=== PATIENT | female | born 2000 | race Caucasian/White ===

== ENCOUNTER 2023-04-21 09:34 | Emergency (ER) | payer MEDICAID, SELFPAY ==
[2023-04-21 09:35] VITALS: BP 135/73; PULSE 104; RESP 14; TEMP 36.6; O2SAT 99; BMI 28.3
--- NOTE | 2023-04-21 09:51 | EX.ED.VIS.UR ---
HPI HPI - URI History of Present Illness Chief Complaint: Sore Throat Informant: patient Onset/Context/Timing Onset: Days (3) Context: Gradual Onset Timing: Continuous Quality: Stabbing, aching Location: Throat Worsened by: Swallowing and Eating Solids Relieved by: - (Nothing) Associated Symptoms Associated Symptoms: Positive for Chest Pain; Negative for Nasal Congestion, Headache, Sinus Pressure, Myalgias, Nausea, Vomiting, Diarrhea, Shortness of Breath, Nonproductive cough, Hemoptysis or Productive Cough Narrative Narrative: Patient presents with a sore throat that has been getting worse over the past 3 days. Patient states it is gradually getting worse. Patient states it is a constant ache but stabbing when she swallows. Patient states it is worse whenever she swallows or eats anything. Patient is able to swallow water. Patient denies any fevers or chills. Patient also admits to some pain in her chest. Patient states it is worse when she raises her arms. Patient denies any cough or shortness of breath. Patient denies any nausea or vomiting. ROS ROS ED Constitutional Constitutional ED: Denies chills or fever(s) Eyes Eyes: Denies blurry vision or change in vision ENT ENT ED: Reports sore throat; Denies rhinorrhea Cardiovascular Cardiovascular: Reports chest pain; Denies palpitations Respiratory/Chest Respiratory/Chest: Denies cough or dyspnea Gastrointestinal Gastrointestinal: Denies nausea or vomiting Genitourinary Genitourinary ED: Denies dysuria or hematuria Musculoskeletal Musculoskeletal: Denies back pain or neck pain Integumentary Denies abscess or rash Neurologic Neurologic: Denies headache(s) or weakness Allergic/Immunologic Allergic/Immunologic ED: Denies mouth swelling or urticaria PFSH PFSH Medical History no medical history no medical history Allergy/AdvReac Type Severity Reaction Status Date / Time No Known Allergies Allergy Verified 04/21/23 09:35 Surgical History Hx of tonsillectomy Social History Smoking Status: Current every day smoker tobacco type: cigarettes EXAM Physical Exam Const Vital Signs: 04/21/23 09:35 04/21/23 12:00 Temperature 98 F Temperature Source Temporal Pulse Rate 104 H Respiratory Rate 14 16 Blood Pressure 135/73 H Blood Pressure Mean 93 Pulse Ox 99 Oxygen Delivery Method Room Air Positive well nourished and well developed General Appearance ED: well developed and NAD HEENT Reports moist mucous membranes normocephalic and atraumatic Face and Sinus: Negative for sinus tenderness Throat: posterior oropharynx abnormal Positive for erythema; Negative for exudates Neck no lymphadenopathy, supple, no meningeal signs and no JVD General: Negative for anterior neck swelling Resp normal respiratory effort and clear to auscultation bilaterally Cardio Rate: regular rate Rhythm: regular rhythm GI non-tender Palpation: soft Extremity normal to inspection and full ROM Neuro oriented x3, CN's II-XII intact bilaterally and no sensory deficits noted Sensorium / Orientation: alert Motor Exam: strength 5/5 throughout Psych mental status grossly normal MDM MDM MDM Narrative Medical decision making narrative: Differential diagnosis includes strep pharyngitis, viral pharyngitis, parapharyngeal abscess, pneumonia, viral upper respiratory infection, and COVID-19 infection. Chest x-ray will be obtained to assess for pneumonia. Rapid strep will be obtained to assess for strep pharyngitis. COVID-19 rapid antigen will be obtained to assess for COVID-19 infection. Influenza A and influenza B antigens will be obtained to assess for influenza infection. CBC will be obtained to assess for leukocytosis or anemia. Basic metabolic profile will be obtained to assess for electrolyte abnormality and renal function. CT scan of the soft tissue neck will be obtained to assess for parapharyngeal abscess. Lab Data Attestation: I reviewed the patient's lab results. Lab results narrative: CBC was reviewed. There is a mild leukocytosis of 11.8. Basic metabolic profile was reviewed and was essentially within normal limits. Labs: Laboratory Results - last 24 hr 04/21/23 10:08 WBC 11.8 H RBC 4.80 Hgb 13.9 Hct 44.7 MCV 93.1 MCH 29.0 MCHC 31.1 L RDW Std Deviation 44.6 H RDW Coeff of Cindy 13.0 Plt Count TNP MPV 11.5 Immature Gran % (Auto) 0.400 Neut % (Auto) 76.3 H Lymph % (Auto) 11.6 L Glascock % (Auto) 10.3 H Eos % (Auto) 0.8 Baso % (Auto) 0.6 Absolute Neuts (auto) 9.0 H Absolute Lymphs (auto) 1.37 Nucleated RBC % 0 Platelet Estimate ADEQUATE Sodium 136 Potassium 4.5 Chloride 108 H Carbon Dioxide 23.0 Anion Gap 5 BUN 7 Creatinine 0.86 Estim Creat Clear Calc 84.88 Est GFR (MDRD) Af Amer 105 Est GFR (MDRD) Non-Af 87 BUN/Creatinine Ratio 8.1 L Glucose 119 H Calcium 8.8 Radiography Chest X-Ray - ED: 2 View, Read by ED Physician, Read by Radiologist and No Acute Disease Diagnostic Testing: Clinical Impression(s) from Imaging Studies Soft Tissue Neck CT 04/21/23 09:56 IMPRESSION: Normal enhanced CT examination of the soft tissues of the neck. Electronically Signed: Carlos Hurtado MD at 11:15 EDT , Chest X-Ray 04/21/23 09:57 IMPRESSION: Normal x-ray examination of the chest. Electronically Signed: Eddie Walker MD at 10:53 EDT , PA and lateral chest x-ray was obtained. There are 2 views. On my independent interpretation, lung lopez are clear. There is normal cardiac silhouette. Bony thorax is normal. There is no acute process noted. Radiologist also interpreted the x-ray and agrees. CT scan of the soft tissue neck was obtained. There is no evidence of any abscess or fluid collection. This was interpreted by the radiologist and was also independently reviewed by myself. Treatment and Re-Evaluation Narrative: Was given IV fluids and morphine. Patient was feeling better on reevaluation. Patient was advised of her findings. Patient was advised that this is most likely a viral pharyngitis. Patient was instructed to drink plenty of fluids. Patient was instructed to follow-up with her primary care physician in 5 to 7 days. Patient understood and was agreeable with the plan. All questions were answered. Discharge Plan Triage Chief Complaint: Sore Throat ED Provider: Solitario Lennon Dx/Rx/DC Orders Clinical Impression: Viral pharyngitis Instructions: ED Pharyngitis, Viral Primary Care Provider: Care Physician,No Primary Referrals: Hernesto Ohara MD [Non-Staff] - 5-7 Days Disposition Disposition: Home, Self Care
--- NOTE | 2023-04-21 09:56 | CT_ITS ---
STUDY: CT SOFT TISSUE NECK WITH CONTRAST REASON FOR EXAM: Female, 22 years old. Sore throat. Patient feels a lump in the throat. RADIATION DOSAGE (If Supplied By Facility): CTDIvol = ( 17.00 ) mGy, DLP = ( 518.17 ) mGycm TECHNIQUE: The patient was scanned in a multi-detector CT scanner. High resolution transaxial imaging was performed following intravenous administration of IV 100mL [id number]-[id number]. Sagittal and coronal images were reconstructed. Individualized dose optimization techniques were used for this CT. COMPARISON: None. FINDINGS: Normal bilateral parotid glands. Normal bilateral seam rubber spaces. Normal bilateral parapharyngeal spaces. Normal bilateral carotid spaces. Normal bilateral sublingual and submandibular glands and spaces. Normal visualized nasopharynx. Normal retropharyngeal space. Normal perivertebral space. Normal visualized bilateral faucial tonsils. The visualized tongue, tongue base and oropharynx are normal. The visualized cervical lymph nodes (levels I-) are within normal size limits, and maintain normal morphology. There is no demonstrated solid or cystic mass lesion. There is no abnormal contrast enhancement. Normal epiglottis, bilateral vallecula and hypopharynx. The pre-epiglottic and paraglottic adipose spaces are normal. Normal visualized bilateral piriform sinuses, aryepiglottic folds, vocal cords, and arytenoid-cricoid articulations. Normal subglottic trachea. Normal bilateral lobes of the thyroid gland. Normal visualized pulmonary apices. Minimal mucosal thickening in the left maxillary sinus. Normal visualized cervical spine. CT/Soft Tissue Neck WITH Contrast IMPRESSION: Normal enhanced CT examination of the soft tissues of the neck. Electronically Signed: Carlos Hurtado MD at 11:15 EDT ,
--- NOTE | 2023-04-21 09:57 | RAD_ITS ---
STUDY: X-RAY CHEST REASON FOR EXAM: Female, 22 years old. Throat pain radiating into chest. TECHNIQUE: Frontal and lateral views of the chest. COMPARISON: None. FINDINGS: The lungs are clear and expanded. There is no demonstrated pleural abnormality. Normal size heart. Normal mediastinum and nataly. Normal visualized pulmonary arteries. Normal visualized aortic arch and descending thoracic aorta. Normal visualized thoracic spine. Normal visualized ribs, clavicles, and shoulders. No abnormality of the visualized soft tissue structures of the upper abdomen. RAD/Chest PA and Lateral IMPRESSION: Normal x-ray examination of the chest. Electronically Signed: Eddie Walker MD at 10:53 EDT ,
[2023-04-21] MEDS: Morphine 2 MG/ML Syringe IV (10:14)
[2023-04-21] MEDS: 0.9% Normal Saline (1000mL) 1,000 ML 1000 ML IV (10:16)
[2023-04-21 10:18] LABS: Absolute Lymphocyte Count 1.37 X10^3/uL (0.83-4.51); Basophil# 0.07 X10^3/uL; Basophil% 0.6 % (0-1); Eosinophil# 0.09 X10^3/uL; Eosinophils% 0.8 % (0-5); Hematocrit 44.7 % (37-47); Hemoglobin 13.9 g/dL (12.0-15.0); Lymphocyte # 1.37 X10^3/ul (0.83-4.51); Lymphocyte % 11.6 % (19-41); Mean Corp Hgb Conc 31.1 g/dL (32-36); Mean Corpuscular Volume 93.1 fL (81-99); Mean Platelet Vol. 11.5 fl (6.2-12.0); Monocyte# 1.22 X10^3/uL; Monocyte% 10.3 % (0-10); NRBC Flagged by Analyzer 0 % (0-5); Neutrophil # 9.04 X10^3/uL (2.7-7.7); Neutrophil % 76.3 % (47-70); POSITIVE COUNT YES; RBC Distribution Width SD 44.6 fl (35.1-43.9); White Blood Count 11.8 K/mm3 (4.4-11.0)
[2023-04-21 10:38] LABS: Anion Gap 5 (5-15); BUN 7 mg/dL (7-18); BUN/Creat Ratio 8.1 RATIO (10-20); Calcium,Total 8.8 mg/dL (8.5-10.1); Chloride 108 mmol/L (98-107); Creatinine, Serum 0.86 mg/dL (0.55-1.02); EST Glomerular Filtration Rate 87 mL/min (>60); Est Glom Filt Rate - Afr Amer 105 mL/min (>60); Estimated Creatinine Clearance 84.88 ml/min; Glucose 119 mg/dL (74-106); Potassium 4.5 mmol/L (3.5-5.1); Sodium Level 136 mmol/L (136-145)
[2023-04-21 10:44] LABS: Differential Indicated SCAN CRITERIA MET; Platelet Estimate ADEQUATE (ADEQ)
[2023-04-21 12:00] VITALS: RESP 16
== END 2023-04-21 12:32 | disposition home or self-care (01) ==
PROVIDERS: Emergency Provider Emergency Medicine; Visit Provider Emergency Medicine
DX: J02.8 Acute pharyngitis due to other specified organisms (principal); B97.89 Other viral agents as the cause of diseases classified elsewhere; F17.210 Nicotine dependence, cigarettes, uncomplicated
CPT/HCPCS: 70491; 71046; 80048; 85025; 87428; 87880; 96361; 96374; 99282; J7030; Q9967; A4216